=== PATIENT | male | born 1960 | race Asian ===

== ENCOUNTER 2019-01-29 11:45 | Outpatient (CLI) | payer OTHER ==
[2019-01-29 12:16] LABS: % BASOPHILS 0.9 % (0.0-2.0); % LYMPHOCYTES 36.8 % (20.0-50.0); % MONOCYTES 8.5 % (2.0-10.0); % NEUTROPHILS 49.8 % (40.0-80.0); BASOPHILE ABSOLUTE 0.1 Th/cumm (0-0.2); EOSINOPHILE ABSOLUTE 0.3 Th/cmm (0.1-0.4); HEMATOCRIT 40.8 % (41.0-60); HEMOGLOBIN 13.4 gm/dL (12-16); LYMPHOCYTE ABSOLUTE 2.4 Th/cmm (1.5-3.0); MEAN CELL VOLUME 84.3 fl (80-99); MEAN CORPUSCULAR HEMOGLOBIN 27.8 pg (26.0-30.0); MEAN CORPUSCULAR HGB CONC 32.9 pg (28.0-36.0); MEAN PLATELET VOLUME 7.5 fl; MONOCYTE ABSOLUTE 0.6 Th/cmm (0.3-1.0); NEUTROPHILE ABSOLUTE 3.1 Th/cmm (1.8-8.0); PLATELET COUNT 201 Th/cmm (150-400); RED BLOOD COUNT 4.84 Mil/cmm (4.30-5.70); RED CELL DISTRIBUTION WIDTH 14.5 % (11.5-20.0); WHITE BLOOD COUNT 6.5 Th/cmm (4.8-10.8)
[2019-01-29 13:32] LABS: ALB/GLOB RATIO 1.4 (1.0-1.8); ALKALINE PHOSPHATASE 55 U/L (34-104); ANION GAP 12.3 (7.0-16.0); BUN - UREA NITROGEN 14 mg/dL (7-25); CALCIUM SERUM 9.4 mg/dL (8.6-10.3); CARBON DIOXIDE 26.8 mEq/L (21.0-31.0); CHLORIDE 105 mEq/L (98-107); CHOLESTEROL 131 mg/dL (<200); CREATININE - SERUM 0.8 mg/dL (0.7-1.3); GFR AFRICAN-AMERICAN > 60.0 ml/min (>90); GFR NON AFRICAN-AMERICAN > 60.0 ml/min; GLUCOSE 104 mg/dL (70-105); HDL -HIGH DENSITY LIPOPROTEIN 42 mg/dL (23-92); POTASSIUM SERUM 4.1 mEq/L (3.5-5.1); SGOT 19 U/L (13-39); SGPT/ALT 20 U/L (7-52); SODIUM SERUM 140 mEq/L (136-145); TOTAL PROTEIN,SERUM 6.9 gm/dL (6.0-8.3); TRIGLYCERIDES 91 mg/dL (<150)
== END 2019-01-29 12:00 | disposition home or self-care (01) ==
LOC: LAB 11:45 → EEVIPCON 11:45 → LAB 12:00
DX: I11.9 Hypertensive heart disease without heart failure (principal); I43 Cardiomyopathy in diseases classified elsewhere
CPT/HCPCS: 36415-UA; 80053-TC; 80061-TC; 82306-90; 84443-TC; 85025-TC

== ENCOUNTER 2019-03-18 16:37 | Emergency (ER) | payer OTHER ==
--- NOTE | 2019-03-18 16:52 | ED Physician Chart ---
ED Chief Complaint/HPI - Patient Information Date Seen:: 03/18/19 Time Seen:: 16:40 Chief Complaint:: Abdominal pain since about 9 am today. History of Present Illness:: Pt came in by private auto because of onset abdominal pain since about 9 am today. Pain is characterized as sharp, intermittent, and localized at epigastric region. Pain can be precipitated and aggravated with palpation. No known relieving factor. No fever. No N/V/D. Last BM at about 7 am today that was hard in consistency but normal in color. No hematochezia or melena. No lightheadedness. Pt admit daily caffeinated beverage consumption and occasional ethanol use. Pt takes ASA daily for his h/o ASHD. pt denies use of NSAID's, greasy/spicy food, or tobacco. Allergies:: Allergies Allergy/AdvReac Type Severity Reaction Status Date / Time Penicillins [PCN] Allergy Verified 07/15/16 20:46 Vitals:: see Nurse Note. Historian:: Patient Family MD/PCP:: Dr. Munguia. LMP:: N/A Review:: Nurse's Note Reviewed ED Review of Systems - Review of Systems General/Constitutional: No fever, No chills, No weight loss, No weakness, No edema, No loss of appetite Skin: No skin lesions, No bruising Head: No headache, No light-headedness Eyes: No loss of vision, No pain ENT: No earache, No nasal drainage, No sore throat Neck: No neck pain, No swelling, No stiffness Cardio Vascular: No chest pain, No palpitations, No PND, No orthopnea, No edema Pulmonary: No SOB, No cough, No wheezing GI: No nausea, No vomiting, No diarrhea, Pain, No melena, No hematochezia, No constipation, No hematemesis G/U: No dysuria, No frequency, No hematuria Musculoskeletal: No bone or joint pain, No back pain Endocrine: No polyuria, No polydipsia Psychiatric: No prior psych history Hematopoietic: No bruising, No lymphadenopathy Allergic/Immuno: No urticaria Neurological: No syncope, No focal symptoms, No weakness, No headache, No dizziness, No confusion ED Past Medical History - Past Medical History Past Medical History: CAD (s/p MT in 2016), Asthma/COPD, Dyslipidemia Family History: Heart disease (in parents), Diabetes Melitus (mother), HTN (in father) Social History: Non Smoker (h/o prior tobacco use, stopped in '16.), Alcohol ( occasional use.), No Drug Use, , Employed, Other (lives with his ) Surgical History: None Psychiatricy History: None Medication: Reviewed Family Medical History - Family Member Father History Unknown: Yes ED Physical Exam - Physical Examination General/Constitutional: Awake, Well-developed, well-nourished (male), Alert, Non -toxic appearing, Ambulatory Other Gen/Cons comments:: Breathes comfortably, speaks clearly, and interacts normally. Pt is in distress due to severe upper abdominal pain. Head: Atraumatic Eyes: Lids, conjuctiva normal, PERRL, EOMI Skin: Nl inspection, No rash, Well hydrated, No lymphadenopathy ENMT: External ears, nose nl, Nasal exam nl, Oropharynx nl Neck: Nontender, Full ROM w/o pain, No JVD, No nuchal rigidity, No mass Respiratory: Nl effort/Exclusion, Clear to Auscultation, No Wheeze/Rhonchi/Rales Cardio Vascular: RRR, No murmur, gallop, rubs, Carotid/Femoral/Distal pulses equal bilaterally GI: No organomegaly, No hernia, Normal BS's, No mass/bruits Other GI comments:: Mild distension.Tenderness to palpation at epigastric region. No R/G. Negative Gillis's, Dean-Fang's, and [place]'s signs. Rectal exam: deferred per pt's request. : No CVA tenderness Extremities: No tenderness or effusion, Full ROM, No edema Neuro/Psych: Alert/oriented (oriented x 3), No focal deficits ED Labs/Radiology/EKG Results - Lab Results Results: Laboratory Tests 03/18/19 03/18/19 03/18/19 17:25 17:25 17:25 WBC 9.9 RBC 5.34 Hgb 15.1 Hct 45.4 MCV 85.0 MCH 28.2 MCHC Differential 33.2 RDW 14.3 Plt Count 202 MPV 8.0 Neutrophils % 73.7 Lymphocytes % 17.5 L Monocytes % 6.4 Eosinophils % 1.8 Basophils % 0.6 PT 10.6 INR 1.02 PTT (Actin FS) 27.5 Sodium 128 L Potassium 4.7 Chloride 99 Carbon Dioxide 21.4 Anion Gap 12.3 BUN 19 Creatinine 0.9 Est GFR ( Amer) > 60.0 Est GFR (Non-Af Amer) > 60.0 BUN/Creatinine Ratio 21.1 Glucose 133 H Calcium 10.0 Total Bilirubin 1.1 H AST 19 ALT 22 Alkaline Phosphatase 63 Troponin I Total Protein 7.6 Albumin 4.5 Globulin 3.1 Albumin/Globulin Ratio 1.5 Amylase 77 Lipase 70 03/18/19 17:25 WBC RBC Hgb Hct MCV MCH MCHC Differential RDW Plt Count MPV Neutrophils % Lymphocytes % Monocytes % Eosinophils % Basophils % PT INR PTT (Actin FS) Sodium Potassium Chloride Carbon Dioxide Anion Gap BUN Creatinine Est GFR ( Amer) Est GFR (Non-Af Amer) BUN/Creatinine Ratio Glucose Calcium Total Bilirubin AST ALT Alkaline Phosphatase Troponin I < 0.01 L Total Protein Albumin Globulin Albumin/Globulin Ratio Amylase Lipase - Radiology Results Results: CT of abdomen/pelvis: Severely distended stomach. Distended small bowel loops, ? partial SBO. 3mm left renal stone. 3 cm left renal cyst. Official report per Dr. Dylan Lopez, radiologist. - EKG Interpretations EKG Time:: 17:11 Rate & Rhythm: NSR with VR 68 Comments:: Nonspecific ST T changes. No acute ischemic changes. ED Septic Shock - . Is Septic Shock (SBP<90, OR Lactate>4 mmol\L) present?: No ED Reassessment (Disposition) - Reassessment Reassessment:: 1820 Pt has been repeatedly evaluated. Pt feels better and does not need more pain control. CT report just became available. EKG, lab, and CT findings have been reviewed with pt. Management plan has been discussed. 1837 Pt is recommended to be admitted to the hospital for further observation and management. Pt is to be put on NPO and IV hydration, given the concern of partial small bowel obstruction/impending small bowel obstruction. Pt is alert and oriented x 3. Pt decides to leave AMA and states that he will follow with his PCP. Indications for further inpatient care, related benefits and risks, including risks for leaving AMA have been well explained to pt. Pt acknowledges understanding but still chooses to leave AMA. Pt has signed AMA form. The above discussion and signing AMA form have been witnessed by my nurse Shayy. Pt has been explained that if he changes his mind, he is welcome to return anytime. Pt again acknowledges understanding and appreciate our effort in caring for him. His is at bedside per pt's request. She will drive pt home. Reassessment Condition:: Improved - Diagnosis Diagnosis:: Abdominal pain. Consider early small bowel obstruction. Stable and improved. Mild hyponatremia. Mild hyperglycemia. - Patient Disposition Discharge/Transfer:: Against Medical Advice Time:: 18:40 Condition at Disposition:: Stable
[2019-03-18] MEDS ORDERED: HYDROmorphone 1 mg/mL 1mL Syr IVP STA (16:58)
[2019-03-18 17:43] LABS: % BASOPHILS 0.6 % (0.0-2.0); % EOSINOPHILS 1.8 % (0.0-5.0); % LYMPHOCYTES 17.5 % (20.0-50.0); % MONOCYTES 6.4 % (2.0-10.0); % NEUTROPHILS 73.7 % (40.0-80.0); BASOPHILE ABSOLUTE 0.1 Th/cumm (0-0.2); EOSINOPHILE ABSOLUTE 0.2 Th/cmm (0.1-0.4); HEMATOCRIT 45.4 % (41.0-60); HEMOGLOBIN 15.1 gm/dL (12-16); LYMPHOCYTE ABSOLUTE 1.7 Th/cmm (1.5-3.0); MEAN CORPUSCULAR HEMOGLOBIN 28.2 pg (26.0-30.0); MEAN CORPUSCULAR HGB CONC 33.2 pg (28.0-36.0); MONOCYTE ABSOLUTE 0.6 Th/cmm (0.3-1.0); NEUTROPHILE ABSOLUTE 7.3 Th/cmm (1.8-8.0); PLATELET COUNT 202 Th/cmm (150-400); RED BLOOD COUNT 5.34 Mil/cmm (4.30-5.70); RED CELL DISTRIBUTION WIDTH 14.3 % (11.5-20.0); WHITE BLOOD COUNT 9.9 Th/cmm (4.8-10.8)
[2019-03-18] MEDS ORDERED: HYDROmorphone 1 mg/mL 1mL Syr ONE (17:46)
[2019-03-18 17:50] LABS: ALB/GLOB RATIO 1.5 (1.0-1.8); ALBUMIN 4.5 gm/dL (4.2-5.5); ALKALINE PHOSPHATASE 63 U/L (34-104); AMYLASE SERUM 77 U/L (29-103); ANION GAP 12.3 (7.0-16.0); BILIRUBIN,TOTAL 1.1 mg/dL (0.3-1.0); BUN - UREA NITROGEN 19 mg/dL (7-25); CARBON DIOXIDE 21.4 mEq/L (21.0-31.0); CHLORIDE 99 mEq/L (98-107); CREATININE - SERUM 0.9 mg/dL (0.7-1.3); GFR AFRICAN-AMERICAN > 60.0 ml/min (>90); GFR NON AFRICAN-AMERICAN > 60.0 ml/min; GLUCOSE 133 mg/dL (70-105); INR 1.02 (0.5-1.4); LIPASE 70 U/L (11-82); POTASSIUM SERUM 4.7 mEq/L (3.5-5.1); PROTHROMBIN TIME (TEST) 10.6 SECONDS (9.5-11.5); SGOT 19 U/L (13-39); SGPT/ALT 22 U/L (7-52); SODIUM SERUM 128 mEq/L (136-145); TOTAL PROTEIN,SERUM 7.6 gm/dL (6.0-8.3)
[2019-03-18] MEDS ORDERED: Sodium Chloride 0.45% 1,000 ML IV ONE (18:22)
--- NOTE | 2019-03-19 08:46 | Diagnostic Imaging Report ---
CT scan abdomen and pelvis without intravenous contrast HISTORY: Pain Total DLP equals 659 CTDI equals 12.9 Axial sections were obtained from the xiphoid process down to the pubic symphysis. The liver exhibits a homogeneous parenchyma. No focal lesions. The spleen appears normal. There is a markedly distended fluid-filled stomach. Mildly dilated proximal small bowel noted. Etiology uncertain. A degree of obstruction cannot be definitely excluded. No focal abnormality seen within the pancreas. Right kidney is unremarkable. There is an approximate 2.0 cm left peripelvic cyst. A 2 mm calculus is seen within the medullary region. No hydronephrosis. The exam of the pelvis demonstrates preservation of normal fat planes. No abnormal soft tissue masses or abnormal fluid collections. IMPRESSION: 1. Markedly distended fluid-filled stomach with mild dilatation of proximal small bowel. A degree of obstruction cannot be excluded. Clinical correlation and follow-up needed 2. 2 mm nonobstructing left renal calculus 3. Left renal cyst
== END 2019-03-18 18:40 | disposition left against medical advice (07) ==
LOC: ER 16:37
DX: R10.13 Epigastric pain (principal); E87.1 Hypo-osmolality and hyponatremia; R73.9 Hyperglycemia, unspecified; I25.10 Atherosclerotic heart disease of native coronary artery without angina pectoris; J44.9 Chronic obstructive pulmonary disease, unspecified; E78.5 Hyperlipidemia, unspecified; Z88.0 Allergy status to penicillin
CPT/HCPCS: 99284; 96374; 96375; 93005; 74176; 84484; 36415; 85025; 85610; 82150; 83690; 80053; C9113; J1170